=== PATIENT | female | born 1950 | race Caucasian/White ===

== ENCOUNTER 2017-05-25 11:13 | Outpatient (CLI) | payer MEDICARE | END 2017-05-25 11:14 | disposition home or self-care (01) | LOC: BICMAMMO 11:13 | PROVIDERS: ATTEND Internal Medicine | DX: Z12.31 Encounter for screening mammogram for malignant neoplasm of breast (principal); R92.1 Mammographic calcification found on diagnostic imaging of breast; Z80.3 Family history of malignant neoplasm of breast | CPT/HCPCS: 77063; 77067 ==

== ENCOUNTER 2017-10-19 10:11 | Outpatient (CLI) | payer MEDICARE ==
--- NOTE | 2017-10-19 14:00 | CT ---
CT PULMONARY LUNG SCAN: Date: 10/19/17 INDICATION: Low dose CT lung cancer screening examination with history of COPD and smoking for 50+ years, less th an 1/2 pack a day now. Patient is having some shortness of breath. COMPARISON: Prior CT pulmonary lung cancer screening examination dated 05/12/16. FINDINGS: There are stable areas of reticular nodularity seen within portions of the right upper lobe and right middle lobe. There are new areas of reticular nodularity seen within the lateral aspect of the right lower lobe. Areas of mild scarring seen within the medial right lower lobe. There is scattered calci fied granuloma. There are scattered central lobular and paraseptal emphysema. There are vascular calc ifications involving the coronary arteries and thoracic aorta. There are scattered calcified lymph no sharon within the mediastinal and hilar regions. The visualized adrenal glands appear within normal limi ts. No acute osseous abnormality is evident. There is scattered degenerative and osteoarthritic change. IMPRESSION: 1. Lung-RADS Category 3: Positive: Indeterminate findings requiring low dose CT imaging follow-up. Positive findings are likely benign, but require imaging follow-up until benign criteria are met. Th ere are infectious and inflammatory nodules suspected within the right upper lobe, right middle lobe, and right lower lobe. Recommend appropriate treatment and a follow-up low dose CT evaluation in 1-2 months. 2. Findings of prior granulomatous disease and moderate to severe COPD. POS: [facility]
== END 2017-10-19 10:12 | disposition home or self-care (01) ==
LOC: CT 10:11
PROVIDERS: ATTEND Internal Medicine
DX: F17.210 Nicotine dependence, cigarettes, uncomplicated (principal); J44.9 Chronic obstructive pulmonary disease, unspecified; R91.1 Solitary pulmonary nodule; D71 Functional disorders of polymorphonuclear neutrophils
CPT/HCPCS: G0297

== ENCOUNTER 2018-01-31 13:39 | Outpatient (CLI) | payer MEDICARE ==
--- NOTE | 2018-01-31 16:24 | CT ---
CHEST CT SCAN WITHOUT IV CONTRAST: Date: 01/31/18 HISTORY: 67-year-old female, follow-up abnormal CT scan. COPD. COMPARISON: 10/19/17. FINDINGS: There are again noted to be multiple old granuloma calcification changes bilaterally, as well as some scattered reticulonodular parenchymal changes in the right upper lobe, right middle lobe, and right lower lobe. These appear to be less prominent and may show actual improvement, certainly there is no worsening. No evidence for new acute pulmonary parenchymal process. No pleural effusion or pericardia l effusion. IMPRESSION: Stable to possibly slightly improved reticulonodular parenchymal changes in the right upper lobe, rig ht middle lobe, and right lower lobe, as well as other bilateral stable findings. IMPRESSION: Lung-RADS Category 3: Positive, indeterminate findings requiring follow-up. These reticulonodular den sities appear stable to slightly improved, certainly no worsening. Consider follow-up low dose CT sca n in 3 months for further assessment. POS: [facility]
== END 2018-01-31 13:40 | disposition home or self-care (01) ==
LOC: CT 13:39
PROVIDERS: ATTEND Internal Medicine Sleep Medicine
DX: R93.89 Abnormal findings on diagnostic imaging of other specified body structures (principal); J98.4 Other disorders of lung
CPT/HCPCS: 71250

== ENCOUNTER 2018-05-29 11:11 | Outpatient (CLI) | payer MEDICARE | END 2018-05-29 11:12 | disposition home or self-care (01) | LOC: BICMAMMO 11:11 | PROVIDERS: ATTEND Internal Medicine | DX: Z12.31 Encounter for screening mammogram for malignant neoplasm of breast (principal); R92.1 Mammographic calcification found on diagnostic imaging of breast; Z80.3 Family history of malignant neoplasm of breast | CPT/HCPCS: 77063; 77067 ==